=== PATIENT | female | born 1970 | race American Indian/Alaskan Native ===

== ENCOUNTER 2018-01-20 00:22 | Emergency (ER) | payer OTHER ==
--- NOTE | 2018-01-20 02:13 | XRay Report ---
FINAL REPORT EXAM: XR LT HUMERUS CLINICAL INDICATIONS: LT ARM SWOLLEN AND PAINFUL FINDINGS: AP and lateral views of the left humerus were acquired and demonstrate no fracture or malalignment of the left humerus. No foreign body is seen IMPRESSION: NO FRACTURE OR MALALIGNMENT OF THE LEFT HUMERUS
--- NOTE | 2018-01-20 02:13 | XRay Report ---
FINAL REPORT EXAM: XR LT FOREARM CLINICAL INDICATIONS: LT ARM SWOLLEN AND PAINFUL FINDINGS: AP and lateral views of the left forearm were acquired and demonstrate no fracture or malalignment of the left forearm. No foreign body is seen. IMPRESSION: NO FRACTURE OR MALALIGNMENT OF THE LEFT FOREARM
[2018-01-20] MEDS ORDERED: MOTRIN PO ONE (02:51)
--- NOTE | 2018-01-20 02:54 | Emergency Department Report ---
Upper Extremity - HPI Chief Complaint: Extremity Problem,Nontraumatic Stated Complaint: LEFT ARM PAIN Time Seen by Provider: 01/20/18 02:49 Upper Extremity: Left Arm, Left Forearm Occurred When: Today Mechanism: Unsure Severity: moderate Symptoms: Yes Pain with Movement, Yes Swelling, No Deformity, No Limited Range of Movement, No Numbness, No Weakness, No Bruising/Ecchymosis, No Laceration or Abrasion Other History: 47-year-old -[place] female comes in for complaint of left arm pain that started last night and denies any trauma. Patient complains of swelling in her upper and lower arm. Taken no pain medication. Does have a past medical history of hypertension diabetes she is allergic to codeine gives her hives. ED Review of Systems ROS: Stated complaint: LEFT ARM PAIN Other details as noted in HPI Constitutional: denies: chills, fever Eyes: denies: eye pain, eye discharge, vision change ENT: denies: ear pain, throat pain Respiratory: denies: cough, shortness of breath, wheezing Cardiovascular: denies: chest pain, palpitations Gastrointestinal: denies: abdominal pain, nausea, diarrhea Genitourinary: denies: urgency, dysuria, discharge Musculoskeletal: other (left upper and lower arm pain and swelling) Skin: denies: rash, lesions Neurological: denies: headache, weakness, paresthesias Psychiatric: denies: anxiety, depression Hematological/Lymphatic: denies: easy bleeding, easy bruising ED Past Medical Hx - Past Medical History Previous Medical History?: Yes Hx Hypertension: Yes Hx Diabetes: Yes - Surgical History Past Surgical History?: Yes Additional Surgical History: thyroid, breast C-sec X1 - Social History Smoking Status: Never Smoker Substance Use Type: None - Medications Home Medications: Home Medications Medication Instructions Recorded Confirmed Last Taken Type Cephalexin [Keflex] 500 mg PO BID #20 capsule 01/20/18 Unknown Rx Ibuprofen [Motrin 800 MG tab] 800 mg PO Q8H #30 tablet 01/20/18 Unknown Rx Upper Extremity Exam - Exam General: Vital signs noted. No distress. Alert and acting appropriately. Head and Torso: No HEENT Abnormality, No Neck Tenderness, No Chest/Lungs Abnormality, No Abdominal Tenderness, No Back Tenderness Shoulder Exam: Yes Normal Range of Motion in Shoulder, No Shoulder Tenderness, No Clavicle Tenderness, No Shoulder Deformity, No AC Joint Tenderness Arm Exam: Yes Arm/Humerus Tenderness (distal humerus swelling and erythematous some streaking), No Arm Deformity Elbow: Yes Normal Range of Motion in Elbow, No Elbow Tenderness, No Elbow Deformity Forearm: Yes Forearm Tenderness, No Forearm Deformity, No Pain with Pronation, No Pain with Supination Wrist: Yes Wrist Tenderness, Yes Normal ROM in Wrist, No Wrist Deformity, No Snuffbox Tenderness, No Pain with Axial Thumb Compression Hand: Yes Normal ROM in Digit(s), No Hand Tenderness, No Hand Deformity, No Digit Tenderness, No Digit(s) Deformity, No Tendon Dysfunction CMS Exam: Yes Normal Distal Pulses, Yes Normal Capillary Refill, Yes Normal Distal Sensation, No Broken Skin ED Course Vital Signs 01/20/18 00:22 Temperature 98.4 F Pulse Rate 83 Respiratory 18 Rate Blood Pressure 110/71 O2 Sat by Pulse 95 Oximetry ED Medical Decision Making - Medical Decision Making Patient's been evaluated by this provider fast track. Since patient has been up in ICU setting with her sister that is a patient here. X-ray of humerus and arm shows no abnormalities of fractures or dislocation or foreign body. Discussed the patient was given ibuprofen 800 for pain and since she has some swelling redness with streaking. I will place patient on Keflex and referred to follow up with her primary care provider on Sunday. Critical care attestation.: If time is entered above; I have spent that time in minutes in the direct care of this critically ill patient, excluding procedure time. ED Disposition Clinical Impression: Cellulitis of upper arm and forearm Disposition: - TO HOME OR SELFCARE Is pt being admited?: No Does the pt Need Aspirin: No Condition: Stable Instructions: Cellulitis (ED) Additional Instructions: Please complete antibiotics as prescribed. Take pain medication as prescribed. Please follow up with her primary care provider in the next 2-3 days. If symptoms persist or gets worse please follow back up in the emergency room. Prescriptions: Cephalexin [Keflex] 500 mg PO BID #20 capsule Ibuprofen [Motrin 800 MG tab] 800 mg PO Q8H #30 tablet Referrals: PRIMARY CARE, [Primary Care Provider] - 3-5 Days
[2018-01-20 04:08] VITALS: BP 117/75
== END 2018-01-20 04:10 | disposition home or self-care (01) ==
LOC: ED 00:22
DX: L03.114 Cellulitis of left upper limb (principal); I10 Essential (primary) hypertension; E11.9 Type 2 diabetes mellitus without complications
CPT/HCPCS: 99283

== ENCOUNTER 2019-07-30 18:56 | Emergency (ER) | payer OTHER ==
[2019-07-30 19:25] VITALS: BP 131/82
--- NOTE | 2019-07-30 19:25 | Emergency Department Report ---
Blank Doc - Documentation Documentation: 49-year-old female that presents with right shoulder pain with radiation to ri ght hand. stated happened after heabvy lifting. Denies any trauma. This initial assessment/diagnostic orders/clinical plan/treatment(s) is/are subject to change based on patient's health status, clinical progression and re- assessment by fellow clinical providers in the ED. Further treatment and workup at subsequent clinical providers discretion. Patient/guardians urged not to elope from the ED as their condition may be serious if not clinically assessed and managed. Initial orders include: 1- Patient sent to [facility] for further evaluation and treatment 2- xrays
--- NOTE | 2019-07-30 19:53 | XRay Report ---
RIGHT SHOULDER 3 VIEWS INDICATION: MAIN: shoulder pain Pt. "pulled" arm and has pain to shoulder. Pt. states her hand is tingling. +CMS , + radial pulse.. COMPARISON: No relevant prior imaging study available. FINDINGS: There is no acute fracture or dislocation. No significant degenerative changes. No foreign bodies or soft tissue calcifications. IMPRESSION: 1. No acute findings. Signer Name: Byron Harrell MD Signed: 07/30/2019 7:48 PM Workstation Name: [id number]
[2019-07-30] MEDS ORDERED: ULTRAM PO ONE (21:33)
[2019-07-30] MEDS ORDERED: TORADOL IM ONE (21:33)
--- NOTE | 2019-07-30 22:04 | XRay Report ---
Right elbow, 3 views INDICATION: Pain following injury tonight FINDINGS: The joint space is maintained. There is no fracture or dislocation. No spurring or arthriti c change. No bone lesion or periostitis. No significant abnormality. No joint effusion seen. IMPRESSION: Negative study Signer Name: Bryan Juan MD Signed: 07/30/2019 10:00 PM Workstation Name: [id number]
--- NOTE | 2019-07-30 22:29 | Emergency Department Report ---
ED Upper Extremity Inj HPI - General Chief Complaint: Shoulder Injury Stated Complaint: RT ARM INJURY Time Seen by Provider: 07/30/19 19:23 Source: patient Mode of arrival: Ambulatory Limitations: No Limitations - History of Present Illness Initial Comments: 49-year-old female that past medical history diabetes and hypertension presents to the hospital complaining of pain to right shoulder. Pain started yesterday after moving chairs with her right arm. She complains of pain to her right shoulder, right elbow, tingling sensation radiating down to her hand. Pain is constant and rated 8/10 in intensity. Patient denies previous injury. She is right-hand dominant. - Related Data Previous Rx's Medication Instructions Recorded Last Taken Type Cephalexin [Keflex] 500 mg PO BID #20 capsule 01/20/18 Unknown Rx Ibuprofen [Motrin 800 MG tab] 800 mg PO Q8H #30 tablet 07/30/19 Unknown Rx traMADol [Ultram 50 MG tab] 50 mg PO Q6HR PRN #14 tablet 07/30/19 Unknown Rx Allergies Allergy/AdvReac Type Severity Reaction Status Date / Time codeine Allergy Hives Verified 01/20/18 00:34 ED Review of Systems ROS: Stated complaint: RT ARM INJURY Other details as noted in HPI Comment: All other systems reviewed and negative ED Past Medical Hx - Past Medical History Previous Medical History?: Yes Hx Hypertension: Yes Hx Diabetes: Yes - Surgical History Past Surgical History?: Yes Additional Surgical History: thyroid, breast C-sec X1 - Social History Smoking Status: Never Smoker Substance Use Type: None - Medications Home Medications: Home Medications Medication Instructions Recorded Confirmed Last Taken Type Cephalexin [Keflex] 500 mg PO BID #20 capsule 01/20/18 Unknown Rx Ibuprofen [Motrin 800 MG tab] 800 mg PO Q8H #30 tablet 07/30/19 Unknown Rx traMADol [Ultram 50 MG tab] 50 mg PO Q6HR PRN #14 tablet 07/30/19 Unknown Rx ED Physical Exam - General Limitations: No Limitations - Other Other exam information: Gen.: No acute distress Head: Atraumatic Eyes: Normal appearance ENT: Moist mucous membranes Neck: Normal appearance, no posterior midline tenderness, no meningismus Chest: Clear to auscultation bilaterally Cardiovascular: Regular rate and rhythm Abdomen: Normal appearance, soft, nontender, no rebound or guarding, normal bowel sounds Back: Normal appearance, nontender Extremity: Tenderness to palpation of posterior right shoulder and associated muscles. Pain with palpation to the medial elbow. Patient has full range of motion of elbow, wrist, and hand. Patient has limited abduction of right shoulder secondary to pain when abducted greater than 90. Other range of motion of shoulder intact. 2+ radial pulse distally. 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 Neuro: Alert, clear speech, no focal motor or sensory deficit Psychiatric: Appropriate Skin: No rash ED Course Vital Signs 07/30/19 19:24 Temperature 98.7 F Pulse Rate 62 Respiratory 18 Rate Blood Pressure 131/82 O2 Sat by Pulse 100 Oximetry ED Medical Decision Making - Radiology Data Radiology results: report reviewed RIGHT SHOULDER 3 VIEWS INDICATION: MAIN: shoulder pain Pt. "pulled" arm and has pain to shoulder. Pt. states her hand is tingling. +CMS, + radial pulse.. COMPARISON: No relevant prior imaging study available. FINDINGS: There is no a cute fracture or dislocation. No significant degenerative changes. No foreign bodies or soft tissue calcifications. IMPRESSION: 1. No acute findings. Right elbow, 3 views INDICATION: Pain following injury tonight FINDINGS: The joint space is maintained. There is no fracture or dislocation. No spurring or arthritic change. No bone lesion or periostitis. No significant abnormality. No joint effusion seen. IMPRESSION: Negative study - Medical Decision Making Patient provided Toradol and tramadol in the ED X-ray negative for fracture Suspicious for musculoskeletal strain Sling provided Meds provided Follow-up with orthopedic - Differential Diagnosis fxr, contusion, sprain, radiculopathy Critical Care Time: No Critical care attestation.: If time is entered above; I have spent that time in minutes in the direct care of this critically ill patient, excluding procedure time. ED Disposition Clinical Impression: Sprain of right shoulder, Arm paresthesia, right Disposition: [id number] TO HOME OR SELFCARE Is pt being admited?: No Does the pt Need Aspirin: No Condition: Stable Instructions: Shoulder Sprain (ED), Paresthesia (ED) Additional Instructions: Take the medication as prescribed. Follow-up with your doctor or with the doctor/clinic provided. Return if symptoms worsen as indicated by your discharge instructions. Prescriptions: Ibuprofen [Motrin 800 MG tab] 800 mg PO Q8H #30 tablet traMADol [Ultram 50 MG tab] 50 mg PO Q6HR PRN #14 tablet PRN Reason: Pain Referrals: HOUSTON MASCORRO MD [Primary Care Provider] - 3-5 Days HOLLY DAWKINS MD [Staff Physician] - 3-5 Days Time of Disposition: 22:31
== END 2019-07-30 22:49 | disposition home or self-care (01) ==
LOC: ED 18:56
DX: S43.401A Unspecified sprain of right shoulder joint, initial encounter (principal); I10 Essential (primary) hypertension; E11.9 Type 2 diabetes mellitus without complications; Z98.890 Other specified postprocedural states; Z79.899 Other long term (current) drug therapy; Z88.5 Allergy status to narcotic agent; X50.0XXA Overexertion from strenuous movement or load, initial encounter; Y93.89 Activity, other specified; Y92.89 Other specified places as the place of occurrence of the external cause; Y99.8 Other external cause status
CPT/HCPCS: 73030; 73080; 96372; 99283; J1885